=== PATIENT | male | born 1955 | race Caucasian/White ===

== ENCOUNTER 2018-12-04 12:27 | Emergency (ER) | payer MEDICAID ==
[~2018-12-04] VITALS: Ht 167.6 cm; Wt 104.3 kg
[~2018-12-04 12:27] MED LIST: ATOR40TA52 PO; CLOP75TA28 PO
[2018-12-04 14:29] VITALS: BP 113/79
== END 2018-12-04 14:56 | disposition home or self-care (01) ==
LOC: MERGE 12:27 → ER 12:27
DX: I83.891 Varicose veins of right lower extremity with other complications (principal); J44.9 Chronic obstructive pulmonary disease, unspecified; E11.9 Type 2 diabetes mellitus without complications; E78.5 Hyperlipidemia, unspecified; I10 Essential (primary) hypertension; Z86.73 Personal history of transient ischemic attack (TIA), and cerebral infarction without residual deficits
CPT/HCPCS: 82962; 93970

== ENCOUNTER 2019-11-07 12:46 | Emergency (ER) | payer MEDICAID ==
[~2019-11-07] VITALS: Ht 167.6 cm; Wt 93.0 kg
[2019-11-07 12:56] VITALS: BP 148/92
[2019-11-07] MEDS ORDERED: ACETAMINOPHEN 325 MG TAB PO ONE (14:00)
[2019-11-07] MEDS ORDERED: HYDROcodone-ACET 10/325MG TAB PO ONE (14:15)
== END 2019-11-07 14:31 | disposition home or self-care (01) ==
LOC: ER 12:46
DX: S43.402A Unspecified sprain of left shoulder joint, initial encounter (principal); I10 Essential (primary) hypertension; Z86.73 Personal history of transient ischemic attack (TIA), and cerebral infarction without residual deficits; X50.0XXA Overexertion from strenuous movement or load, initial encounter; Y93.89 Activity, other specified; Y92.89 Other specified places as the place of occurrence of the external cause; Y99.8 Other external cause status
CPT/HCPCS: 73030

== ENCOUNTER 2022-02-03 06:28 | Inpatient (IN) | payer MEDICARE, MEDICAID ==
[~2022-02-03] VITALS: Ht 167.6 cm; Wt 96.9 kg
[2022-02-03] MEDS ORDERED: ONDANSETRON HCL 4 MG/2 ML VIAL IV ONE (07:15)
[2022-02-03] MEDS ORDERED: NITROGLYCERIN 0.4 MG SL TAB SL ONE ×2 (07:15→08:00)
[2022-02-03] MEDS ORDERED: MORPHINE SULFATE 4 MG/ML SYR/VIAL IV ONE (07:15)
[2022-02-03 07:25] LABS: Basophils # (auto) 0 10 ^3/uL (0-0.2); Basophils % (auto) 0.5 % (0.0-2.0); Eosinophils # (auto) 0.2 10 ^3/uL (0-0.8); Eosinophils % (auto) 1.9 % (0.0-7.0); Hematocrit 41.2 % (41.0-53.0); Hemoglobin 13.7 g/dL (13.5-17.5); Lymphocytes # (auto) 1.8 10 ^3/uL (0.4-5.4); Lymphocytes % (auto) 20.7 % (10.0-50.0); Mean Corpuscular Hemoglobin 29.6 pg (28.0-32.0); Mean Corpuscular Hgb Conc. 33.2 g/dL (32.0-36.0); Mean Corpuscular Volume 89.2 fL (80.0-100.0); Monocytes # (auto) 0.6 10 ^3/uL (0-1.3); Monocytes % (auto) 6.5 % (0.0-12.0); Neutrophils # (auto) 6.1 10 ^3/uL (1.6-8.6); Neutrophils % (auto) 70.4 % (37.0-80.0); Red Blood Cells 4.62 10^6/uL (4.5-5.90); Red Cell Distribution Width 13.4 % (11.8-14.3); White Blood Cell 8.6 10^3/uL (4.4-10.8)
[2022-02-03 07:45] LABS: Albumin 3.4 g/dL (3.4-5.0); Calcium 8.9 mg/dL (8.5-10.1); Magnesium 2.2 mg/dL (1.6-2.6)
[2022-02-03 07:48] LABS: BUN/Creatinine Ratio 19.4; Bilirubin, Total 0.3 mg/dL (0.2-1.0); Total Protein 6.6 g/dL (6.4-8.2)
[2022-02-03 08:07] LABS: INR 0.94 (0.9-1.15)
[2022-02-03 11:19] LABS: Urine Bacteria NONE SEEN /hpf (None Seen); Urine Blood Negative /uL (Negative); Urine Mucus FEW (None Seen); Urine Specific Gravity 1.031 (1.001-1.035); Urine WBC 1 /hpf (0 - 3)
[2022-02-03] MEDS ORDERED: methylPREDNISolone SOD SUCC 125 MG/2 ML VL IV ONE (12:00)
[2022-02-03] MEDS ORDERED: DEXTROSE (50%) 50ML SYRG IV PRN (16:00)
[2022-02-03 16:26] LABS: Cholesterol 115 mg/dL (< 200)
[2022-02-03 16:28] LABS: HDL Cholesterol 49 mg/dL (40-59); LDL Cholesterol 60 mg/dL (< 100); Triglycerides 120 mg/dL (< 150)
[2022-02-03 16:38] LABS: Amphetamine Screen, Urine NEGATIVE (NEGATIVE); Barbiturate Scree,Urine NEGATIVE (NEGATIVE); Benzodiazephine Screen, Urine NEGATIVE (NEGATIVE); Cannabinoid Screen, Urine POSITIVE (NEGATIVE); Cocaine Screen, Urine NEGATIVE (NEGATIVE); Phencyclidine Screen, Urine NEGATIVE (NEGATIVE)
[2022-02-03] MEDS: ACCU-CHEK COMFORT CURVE STRIP VI SCH ×2 (17:20→22:16)
[2022-02-03 17:22] LABS: Opiate Scree,Urine POSITIVE (NEGATIVE)
[2022-02-03] MEDS: InsuLIN REG 1unit/0.01ml Soln (100units/ml) SC SCH ×2 (17:22→22:22)
[2022-02-03 22:35] VITALS: BP 155/89
[2022-02-03] MEDS: NITROGLYCERIN 0.4 MG SL TAB SL PRN ×2 (23:09→23:32)
[2022-02-03] MEDS: MORPHINE SULFATE INJ 2 MG/ml SYRG IV PRN (23:49)
[2022-02-04] MEDS: MORPHINE SULFATE INJ 2 MG/ml SYRG IV PRN (04:00)
[2022-02-04 05:00] VITALS: BP 141/82
[2022-02-04] MEDS: ACCU-CHEK COMFORT CURVE STRIP VI SCH ×4 (06:12→20:54)
[2022-02-04] MEDS: InsuLIN REG 1unit/0.01ml Soln (100units/ml) SC SCH ×4 (06:15→20:54)
[2022-02-04 06:58] LABS: Basophils # (auto) 0 10 ^3/uL (0-0.2); Basophils % (auto) 0.2 % (0.0-2.0); Eosinophils # (auto) 0 10 ^3/uL (0-0.8); Hematocrit 42.4 % (41.0-53.0); Hemoglobin 14.2 g/dL (13.5-17.5); Lymphocytes # (auto) 1.3 10 ^3/uL (0.4-5.4); Lymphocytes % (auto) 6.7 % (10.0-50.0); Mean Corpuscular Hemoglobin 29.9 pg (28.0-32.0); Mean Corpuscular Hgb Conc. 33.4 g/dL (32.0-36.0); Mean Corpuscular Volume 89.6 fL (80.0-100.0); Monocytes # (auto) 1.2 10 ^3/uL (0-1.3); Monocytes % (auto) 6.5 % (0.0-12.0); Neutrophils # (auto) 16.5 10 ^3/uL (1.6-8.6); Neutrophils % (auto) 86.6 % (37.0-80.0); Red Blood Cells 4.73 10^6/uL (4.5-5.90); Red Cell Distribution Width 13.4 % (11.8-14.3)
[2022-02-04 07:16] LABS: Potassium 4.2 mmol/L (3.5-5.1)
[2022-02-04 07:23] LABS: Albumin 3.6 g/dL (3.4-5.0); BUN/Creatinine Ratio 19.3; Bilirubin, Total 0.4 mg/dL (0.2-1.0); Calcium 9.3 mg/dL (8.5-10.1); Total Protein 7.1 g/dL (6.4-8.2)
[2022-02-04 08:30] VITALS: BP 161/86
[2022-02-04] MEDS ORDERED: REGADENOSON 0.4 MG/5 ML SYRG IV ONE (08:45)
[2022-02-04 08:55] VITALS: BP 161/86
[2022-02-04] MEDS ORDERED: ENOXAPARIN SOD 40 MG/0.4 ML SYRINGE SC SCH (10:00)
[2022-02-04] MEDS ORDERED: ASPirin 81 mg TAB PO ONE (10:15)
[2022-02-04] MEDS ORDERED: amLODIPine BESYLATE 5 MG TAB PO ONE (10:15)
[2022-02-04] MEDS ORDERED: KETOROLAC TROMETH 30 MG/ML 1ML VIAL IV ONE (10:30)
[2022-02-04 13:00] VITALS: BP 141/70
[2022-02-04 17:00] VITALS: BP 138/91
[2022-02-04 22:00] VITALS: BP 141/73
[2022-02-04] MEDS ORDERED: ATORVASTATIN 20 MG TAB PO SCH (22:00)
[2022-02-05 05:00] VITALS: BP 147/89
[2022-02-05] MEDS: ACCU-CHEK COMFORT CURVE STRIP VI SCH ×3 (06:26→17:00)
[2022-02-05] MEDS: InsuLIN REG 1unit/0.01ml Soln (100units/ml) SC SCH ×3 (06:32→17:00)
[2022-02-05 07:30] VITALS: BP 142/92
[2022-02-05 08:45] VITALS: BP 142/92
[2022-02-05] MEDS ORDERED: amLODIPine BESYLATE 5 MG TAB PO SCH (10:00)
[2022-02-05] MEDS ORDERED: ASPirin 81 mg TAB PO SCH (10:00)
[2022-02-05] MEDS ORDERED: HYDR25TA4 PO (11:03)
[2022-02-05] MEDS ORDERED: HYDR-4902 PO (11:03)
[2022-02-05] MEDS ORDERED: MAGN400T40 PO (11:03)
[2022-02-05] MEDS ORDERED: FINA5TAB4 PO (11:03)
[2022-02-05] MEDS ORDERED: METF-371 PO (11:03)
[2022-02-05] MEDS ORDERED: ATOR20TA50 PO (11:03)
[2022-02-05] MEDS ORDERED: METO25TA5 PO (11:03)
[2022-02-05] MEDS ORDERED: LISI20TA28 PO (11:03)
[2022-02-05] MEDS ORDERED: CHOL20007 OR (11:03)
[2022-02-05] MEDS ORDERED: ASPI-543 PO (11:03)
[2022-02-05 12:46] VITALS: BP 168/111
[2022-02-05 16:01] VITALS: BP 142/92
[2022-02-05 17:00] VITALS: BP 155/97
== END 2022-02-05 17:30 | disposition home health service (06) | DRG 303 ==
LOC: ER 06:28 → EDBD 06:28 → TELE 14:39 → TELE-CENTR 22:35
PROVIDERS: ADMIT Registered Nurse; ATTEND Internal Medicine
DX: I25.10 Atherosclerotic heart disease of native coronary artery without angina pectoris (principal); E11.9 Type 2 diabetes mellitus without complications; E66.01 Morbid (severe) obesity due to excess calories; I10 Essential (primary) hypertension; I45.10 Unspecified right bundle-branch block; J44.9 Chronic obstructive pulmonary disease, unspecified; R80.9 Proteinuria, unspecified; F12.90 Cannabis use, unspecified, uncomplicated; E78.5 Hyperlipidemia, unspecified; Z20.822 Contact with and (suspected) exposure to COVID-19; R82.4 Acetonuria; Z68.34 Body mass index [BMI] 34.0-34.9, adult; Z71.6 Tobacco abuse counseling; Z80.1 Family history of malignant neoplasm of trachea, bronchus and lung; Z80.3 Family history of malignant neoplasm of breast; Z80.42 Family history of malignant neoplasm of prostate; Z80.8 Family history of malignant neoplasm of other organs or systems; Z81.8 Family history of other mental and behavioral disorders; Z82.0 Family history of epilepsy and other diseases of the nervous system; Z82.3 Family history of stroke; Z82.49 Family history of ischemic heart disease and other diseases of the circulatory system; Z82.5 Family history of asthma and other chronic lower respiratory diseases; Z82.62 Family history of osteoporosis; Z83.3 Family history of diabetes mellitus; Z86.73 Personal history of transient ischemic attack (TIA), and cerebral infarction without residual deficits; Z90.49 Acquired absence of other specified parts of digestive tract; Z79.4 Long term (current) use of insulin
CPT/HCPCS: 36415; 71045; 78452; 80053; 80061; 80307; 81001; 82962; 83036; 83735; 83880; 84443; 84484; 85025; 85379; 85610; 85730; 93005; 93017; 93306; 96374; 96375; G0378; J1815; J1885; J2405

== ENCOUNTER 2022-02-25 12:57 | Emergency (ER) | payer MEDICARE, MEDICAID ==
[~2022-02-25] VITALS: Ht 167.6 cm; Wt 93.0 kg
[~2022-02-25 12:57] MED LIST changes: +ASPI-543 PO; +ATOR20TA50 PO; -ATOR40TA52 PO; +CHOL20007 OR; +FINA5TAB4 PO; +HYDR-4902 PO; +HYDR25TA4 PO; +LISI20TA28 PO; +MAGN400T40 PO; +METF-371 PO; +METO25TA5 PO
[2022-02-25] MEDS ORDERED: ASPirin 81 mg TAB PO ONE (13:00)
[2022-02-25 14:02] LABS: Basophils # (auto) 0.1 10 ^3/uL (0-0.2); Basophils % (auto) 0.6 % (0.0-2.0); Eosinophils # (auto) 0 10 ^3/uL (0-0.8); Eosinophils % (auto) 0.4 % (0.0-7.0); Hematocrit 43.9 % (41.0-53.0); Hemoglobin 14.9 g/dL (13.5-17.5); Lymphocytes # (auto) 1.3 10 ^3/uL (0.4-5.4); Lymphocytes % (auto) 13.7 % (10.0-50.0); Mean Corpuscular Hemoglobin 29.8 pg (28.0-32.0); Mean Corpuscular Hgb Conc. 33.9 g/dL (32.0-36.0); Mean Corpuscular Volume 87.7 fL (80.0-100.0); Monocytes # (auto) 0.7 10 ^3/uL (0-1.3); Monocytes % (auto) 7.1 % (0.0-12.0); Neutrophils # (auto) 7.2 10 ^3/uL (1.6-8.6); Neutrophils % (auto) 78.2 % (37.0-80.0); Nucleated Red Blood Cells % 0.1 %; Red Cell Distribution Width 13.4 % (11.8-14.3); White Blood Cell 9.2 10^3/uL (4.4-10.8)
[2022-02-25 14:54] LABS: Alanine Aminotransferase 25 U/L (16-61); Albumin 3.6 g/dL (3.4-5.0); Anion Gap 10 (5-15); Aspartate Aminotransferase 16 U/L (15-37); BUN/Creatinine Ratio 25.5; Blood Urea Nitrogen 26 mg/dL (7-18); Calcium 9.1 mg/dL (8.5-10.1); Carbon Dioxide 24 mmol/L (21-32); Chloride 100 mmol/L (98-107); GFR African American 94 mL/min; GFR Non-African American 78 mL/min; Glucose 123 mg/dL (74-106); Magnesium 1.9 mg/dL (1.6-2.6); Potassium 3.9 mmol/L (3.5-5.1); Sodium 134 mmol/L (136-145)
[2022-02-25 14:57] LABS: Alkaline Phosphatase 74 U/L (45-117); Bilirubin, Total 0.3 mg/dL (0.2-1.0); Total Protein 7.7 g/dL (6.4-8.2)
[2022-02-25 15:05] LABS: Amphetamine Screen, Urine NEGATIVE (NEGATIVE); Barbiturate Scree,Urine NEGATIVE (NEGATIVE); Benzodiazephine Screen, Urine NEGATIVE (NEGATIVE); Cannabinoid Screen, Urine POSITIVE (NEGATIVE); Cocaine Screen, Urine NEGATIVE (NEGATIVE); Opiate Scree,Urine NEGATIVE (NEGATIVE); Phencyclidine Screen, Urine NEGATIVE (NEGATIVE)
[2022-02-25 20:04] VITALS: BP 135/89
== END 2022-02-25 20:08 | disposition home or self-care (01) ==
LOC: ER 12:57 → EDBD 12:57 → ER 20:04
DX: R06.00 Dyspnea, unspecified (principal); R07.89 Other chest pain; I10 Essential (primary) hypertension; E11.9 Type 2 diabetes mellitus without complications; E78.5 Hyperlipidemia, unspecified; E03.9 Hypothyroidism, unspecified; F17.210 Nicotine dependence, cigarettes, uncomplicated; Z86.73 Personal history of transient ischemic attack (TIA), and cerebral infarction without residual deficits; Z90.49 Acquired absence of other specified parts of digestive tract; Z20.822 Contact with and (suspected) exposure to COVID-19
CPT/HCPCS: 36415; 71045; 80053; 80307; 83735; 84484; 85025; 93005

== ENCOUNTER 2022-04-01 09:00 | Emergency (ER) | payer MEDICARE, MEDICAID ==
[~2022-04-01] VITALS: Ht 167.6 cm; Wt 89.2 kg
[2022-04-01 09:20] VITALS: BP 118/91
[2022-04-01] MEDS ORDERED: ACETAMINOPHEN 325 MG TAB PO ONE (11:15)
[2022-04-01] MEDS ORDERED: ACET-1158 PO (11:19)
== END 2022-04-01 11:19 | disposition home or self-care (01) ==
LOC: ER 09:00
DX: G89.29 Other chronic pain (principal); M54.59 Other low back pain; E11.9 Type 2 diabetes mellitus without complications; I10 Essential (primary) hypertension; E78.5 Hyperlipidemia, unspecified; F17.210 Nicotine dependence, cigarettes, uncomplicated; F12.10 Cannabis abuse, uncomplicated; Z86.73 Personal history of transient ischemic attack (TIA), and cerebral infarction without residual deficits; Z76.0 Encounter for issue of repeat prescription; Z90.89 Acquired absence of other organs
CPT/HCPCS: 81002

== ENCOUNTER 2022-09-25 16:50 | Inpatient (IN) | payer MEDICARE, MEDICAID ==
[~2022-09-25] VITALS: Ht 165.1 cm; Wt 101.0 kg
[~2022-09-25 16:50] MED LIST changes: +ACET-1158 PO
[2022-09-25] MEDS ORDERED: LABETALOL HCL 5 MG/ML 4ML SYRINGE IV ONE ×2 (18:00→20:00)
[2022-09-25 18:43] LABS: Basophils # (auto) 0.1 10 ^3/uL (0-0.2); Basophils % (auto) 1.3 % (0.0-2.0); Eosinophils # (auto) 0.1 10 ^3/uL (0-0.8); Eosinophils % (auto) 0.7 % (0.0-7.0); Hematocrit 44.9 % (41.0-53.0); Hemoglobin 15.5 g/dL (13.5-17.5); Lymphocytes # (auto) 1.2 10 ^3/uL (0.4-5.4); Lymphocytes % (auto) 12.6 % (10.0-50.0); Mean Corpuscular Hemoglobin 29.7 pg (28.0-32.0); Mean Corpuscular Hgb Conc. 34.6 g/dL (32.0-36.0); Mean Corpuscular Volume 85.9 fL (80.0-100.0); Monocytes # (auto) 0.5 10 ^3/uL (0-1.3); Monocytes % (auto) 5.1 % (0.0-12.0); Neutrophils # (auto) 7.9 10 ^3/uL (1.6-8.6); Neutrophils % (auto) 80.3 % (37.0-80.0); Nucleated Red Blood Cells % 0.1 %; Red Blood Cells 5.23 10^6/uL (4.5-5.90); Red Cell Distribution Width 13.6 % (11.8-14.3); White Blood Cell 9.9 10^3/uL (4.4-10.8)
[2022-09-25 18:47] LABS: Urine Bacteria NONE SEEN /hpf (None Seen); Urine Blood Negative /uL (Negative); Urine Specific Gravity 1.016 (1.001-1.035); Urine WBC 1 /hpf (0 - 3)
[2022-09-25 19:02] LABS: Albumin 3.8 g/dL (3.4-5.0); BUN/Creatinine Ratio 16.7; Calcium 9.1 mg/dL (8.5-10.1); Magnesium 2.2 mg/dL (1.6-2.6); Potassium 3.9 mmol/L (3.5-5.1)
[2022-09-25 19:03] LABS: INR 0.97 (0.9-1.15); Partial Thromboplastin Time 26.6 sec (24.6-33.4)
[2022-09-25 19:05] LABS: Bilirubin, Total 0.3 mg/dL (0.2-1.0); Total Protein 7.7 g/dL (6.4-8.2)
[2022-09-25] MEDS ORDERED: DEXTROSE (50%) 50ML SYRG IV PRN (22:00)
[2022-09-25] MEDS ORDERED: DOCUSATE SOD 100 MG CAP PO PRN (22:00)
[2022-09-25] MEDS ORDERED: ACETAMINOPHEN 325 MG TAB PO PRN (22:00)
[2022-09-25] MEDS ORDERED: hydrALAZINE HCL 20 MG/ML VL IV PRN (22:00)
[2022-09-25] MEDS ORDERED: ONDANSETRON HCL 4 MG/2 ML VIAL IV PRN (22:00)
[2022-09-25] MEDS: SODIUM CHLOR 0.9% PF (SALINE LOCK) 10ML VIAL/SYR IV SCH (22:45)
[2022-09-25] MEDS: ACCU-CHEK COMFORT CURVE STRIP VI SCH (22:45)
[2022-09-25] MEDS: InsuLIN REG 1unit/0.01ml Soln (100units/ml) SC SCH (22:46)
[2022-09-25] MEDS: ATORVASTATIN 20 MG TAB PO SCH (22:47)
[2022-09-25] MEDS ORDERED: NITROGLYCERIN 0.4 MG SL TAB SL PRN (23:45)
[2022-09-25] MEDS ORDERED: MORPHINE SULFATE INJ 2 MG/ml SYRG IV PRN (23:45)
[2022-09-26] MEDS ORDERED: TEMAZEPAM 15 MG CAP PO ONE (00:45)
[2022-09-26 03:58] VITALS: BP 150/90
[2022-09-26 05:00] VITALS: BP 150/92
[2022-09-26] MEDS: SODIUM CHLOR 0.9% PF (SALINE LOCK) 10ML VIAL/SYR IV SCH ×3 (06:18→21:37)
[2022-09-26] MEDS: ACCU-CHEK COMFORT CURVE STRIP VI SCH ×4 (06:18→21:37)
[2022-09-26] MEDS: InsuLIN REG 1unit/0.01ml Soln (100units/ml) SC SCH ×4 (06:19→21:37)
[2022-09-26 06:20] LABS: Basophils # (auto) 0.1 10 ^3/uL (0-0.2); Eosinophils # (auto) 0.2 10 ^3/uL (0-0.8); Eosinophils % (auto) 2.3 % (0.0-7.0); Hematocrit 43.1 % (41.0-53.0); Hemoglobin 14.9 g/dL (13.5-17.5); Lymphocytes # (auto) 1.8 10 ^3/uL (0.4-5.4); Mean Corpuscular Hemoglobin 29.8 pg (28.0-32.0); Mean Corpuscular Hgb Conc. 34.5 g/dL (32.0-36.0); Mean Corpuscular Volume 86.5 fL (80.0-100.0); Monocytes # (auto) 0.5 10 ^3/uL (0-1.3); Monocytes % (auto) 7.7 % (0.0-12.0); Neutrophils # (auto) 4.3 10 ^3/uL (1.6-8.6); Nucleated Red Blood Cells % 0.1 %; Red Blood Cells 4.99 10^6/uL (4.5-5.90); Red Cell Distribution Width 13.9 % (11.8-14.3); White Blood Cell 6.8 10^3/uL (4.4-10.8)
[2022-09-26 06:49] LABS: Potassium 4.1 mmol/L (3.5-5.1)
[2022-09-26 06:59] LABS: Albumin 3.5 g/dL (3.4-5.0); BUN/Creatinine Ratio 18.7; Bilirubin, Total 0.6 mg/dL (0.2-1.0); Calcium 9.4 mg/dL (8.5-10.1); Total Protein 6.8 g/dL (6.4-8.2)
[2022-09-26 09:00] VITALS: BP 133/83
[2022-09-26] MEDS: FAMOTIDINE (10MG/ML) 2ML VL IV SCH (09:50)
[2022-09-26] MEDS: ASPirin 81 mg TAB PO SCH (09:50)
[2022-09-26] MEDS: CLOPIDOGREL BISULFATE 75 MG TAB PO SCH (09:50)
[2022-09-26] MEDS: LISINOPRIL 20 MG TAB PO SCH (09:50)
[2022-09-26 12:56] VITALS: BP 164/96
[2022-09-26] MEDS: amLODIPine BESYLATE 5 MG TAB PO SCH (16:21)
[2022-09-26 17:44] VITALS: BP 146/80
[2022-09-26] MEDS ORDERED: LORazepam 2MG/ML-1ML VIAL IV PRN (17:45)
[2022-09-26] MEDS: ATORVASTATIN 20 MG TAB PO SCH (21:33)
[2022-09-26 22:00] VITALS: BP 135/83
[2022-09-27 05:00] VITALS: BP 145/96
[2022-09-27] MEDS: ACCU-CHEK COMFORT CURVE STRIP VI SCH ×4 (05:58→22:35)
[2022-09-27] MEDS: SODIUM CHLOR 0.9% PF (SALINE LOCK) 10ML VIAL/SYR IV SCH ×3 (05:58→22:25)
[2022-09-27] MEDS: InsuLIN REG 1unit/0.01ml Soln (100units/ml) SC SCH ×4 (05:59→22:35)
[2022-09-27 08:29] VITALS: BP 133/95
[2022-09-27] MEDS: HYDROcodone-ACET 5/325MG TAB PO PRN (08:43)
[2022-09-27] MEDS: FAMOTIDINE (10MG/ML) 2ML VL IV SCH (10:07)
[2022-09-27] MEDS: amLODIPine BESYLATE 5 MG TAB PO SCH (10:08)
[2022-09-27] MEDS: ASPirin 81 mg TAB PO SCH (10:08)
[2022-09-27] MEDS: LISINOPRIL 20 MG TAB PO SCH (10:08)
[2022-09-27] MEDS: CLOPIDOGREL BISULFATE 75 MG TAB PO SCH (10:08)
[2022-09-27 13:00] VITALS: BP 162/108
[2022-09-27 17:00] VITALS: BP 116/73
[2022-09-27 22:00] VITALS: BP 161/98
[2022-09-27] MEDS: ATORVASTATIN 20 MG TAB PO SCH (22:25)
[2022-09-27 22:36] VITALS: BP 132/65
[2022-09-28] MEDS ORDERED: TEMAZEPAM 15 MG CAP PO ONE ×2 (00:15→21:30)
[2022-09-28 05:00] VITALS: BP 99/62
[2022-09-28 05:49] VITALS: BP 121/63
[2022-09-28] MEDS: SODIUM CHLOR 0.9% PF (SALINE LOCK) 10ML VIAL/SYR IV SCH ×3 (05:50→20:52)
[2022-09-28] MEDS: InsuLIN REG 1unit/0.01ml Soln (100units/ml) SC SCH ×4 (05:50→22:00)
[2022-09-28] MEDS: ACCU-CHEK COMFORT CURVE STRIP VI SCH ×4 (05:50→22:05)
[2022-09-28] MEDS: HYDROcodone-ACET 5/325MG TAB PO PRN (08:36)
[2022-09-28] MEDS: ASPirin 81 mg TAB PO SCH (08:57)
[2022-09-28] MEDS: LISINOPRIL 20 MG TAB PO SCH (08:57)
[2022-09-28] MEDS: CLOPIDOGREL BISULFATE 75 MG TAB PO SCH (08:57)
[2022-09-28] MEDS: amLODIPine BESYLATE 5 MG TAB PO SCH (08:58)
[2022-09-28] MEDS: FAMOTIDINE (10MG/ML) 2ML VL IV SCH (08:58)
[2022-09-28 09:00] VITALS: BP 135/89
[2022-09-28 12:13] LABS: Cholesterol 123 mg/dL (< 200); HDL Cholesterol 32 mg/dL (40-59); LDL Cholesterol 70 mg/dL (< 100); Triglycerides 228 mg/dL (< 150)
[2022-09-28 13:00] VITALS: BP 125/78
[2022-09-28 17:00] VITALS: BP 151/94
[2022-09-28] MEDS: ATORVASTATIN 20 MG TAB PO SCH (20:52)
[2022-09-28 22:22] VITALS: BP 136/88
[2022-09-29 04:57] VITALS: BP 104/72
[2022-09-29] MEDS: SODIUM CHLOR 0.9% PF (SALINE LOCK) 10ML VIAL/SYR IV SCH ×2 (05:37→14:00)
[2022-09-29] MEDS: InsuLIN REG 1unit/0.01ml Soln (100units/ml) SC SCH ×2 (06:04→11:30)
[2022-09-29] MEDS: ACCU-CHEK COMFORT CURVE STRIP VI SCH ×2 (06:04→11:30)
[2022-09-29 08:00] VITALS: BP 153/115
[2022-09-29] MEDS: HYDROcodone-ACET 5/325MG TAB PO PRN (08:13)
[2022-09-29] MEDS: CLOPIDOGREL BISULFATE 75 MG TAB PO SCH (09:53)
[2022-09-29] MEDS: ASPirin 81 mg TAB PO SCH (09:54)
[2022-09-29] MEDS: LISINOPRIL 20 MG TAB PO SCH (09:54)
[2022-09-29] MEDS: FAMOTIDINE (10MG/ML) 2ML VL IV SCH (09:54)
[2022-09-29] MEDS: amLODIPine BESYLATE 5 MG TAB PO SCH (09:56)
[2022-09-29] MEDS ORDERED: LISI20TA28 PO (11:07)
[2022-09-29] MEDS ORDERED: METF-372 PO (11:07)
[2022-09-29] MEDS ORDERED: CLOP75TA28 PO (11:07)
[2022-09-29] MEDS ORDERED: ASPI-463 PO (11:07)
[2022-09-29] MEDS ORDERED: HYDR25TA5 PO (11:07)
[2022-09-29] MEDS ORDERED: ATO40T PO (11:07)
[2022-09-29] MEDS ORDERED: METO25TA5 PO (11:07)
[2022-09-29 12:00] VITALS: BP 136/94
[2022-09-29 13:31] VITALS: BP 132/90
== END 2022-09-29 15:00 | disposition home or self-care (01) | DRG 64 ==
LOC: EDBD 16:50 → ER 16:50 → TELE 23:37 → TELE-EAST 09-26 02:44
PROVIDERS: ADMIT Nurse Practitioner Family; ATTEND Family Medicine
DX: I63.9 Cerebral infarction, unspecified (principal); I50.33 Acute on chronic diastolic (congestive) heart failure; I16.1 Hypertensive emergency; I11.0 Hypertensive heart disease with heart failure; E11.65 Type 2 diabetes mellitus with hyperglycemia; E66.01 Morbid (severe) obesity due to excess calories; E78.00 Pure hypercholesterolemia, unspecified; K59.00 Constipation, unspecified; R32 Unspecified urinary incontinence; F17.210 Nicotine dependence, cigarettes, uncomplicated; I45.10 Unspecified right bundle-branch block; Z91.199 Patient's noncompliance with other medical treatment and regimen due to unspecified reason; Z91.14 Patient's other noncompliance with medication regimen; Z86.73 Personal history of transient ischemic attack (TIA), and cerebral infarction without residual deficits; Z83.3 Family history of diabetes mellitus; Z82.62 Family history of osteoporosis; Z82.5 Family history of asthma and other chronic lower respiratory diseases; Z82.49 Family history of ischemic heart disease and other diseases of the circulatory system; Z82.3 Family history of stroke; Z82.0 Family history of epilepsy and other diseases of the nervous system; Z81.8 Family history of other mental and behavioral disorders; Z80.8 Family history of malignant neoplasm of other organs or systems; Z80.42 Family history of malignant neoplasm of prostate; Z80.3 Family history of malignant neoplasm of breast; Z80.1 Family history of malignant neoplasm of trachea, bronchus and lung; Z80.0 Family history of malignant neoplasm of digestive organs; Z79.899 Other long term (current) drug therapy; Z79.82 Long term (current) use of aspirin; Z68.37 Body mass index [BMI] 37.0-37.9, adult
CPT/HCPCS: 36415; 70450; 70551; 71045; 80053; 80061; 81001; 82962; 83735; 83880; 84484; 85025; 85610; 85730; 87426; 93005; 93306; 93886; 95819; 96374; 96376; 99291; G0378; J1815; J3490

== ENCOUNTER 2022-10-04 14:34 | Emergency (ER) | payer MEDICARE, MEDICAID ==
[~2022-10-04] VITALS: Ht 167.6 cm; Wt 97.7 kg
[~2022-10-04 14:34] MED LIST changes: +ASPI-463 PO; +ATO40T PO; +HYDR25TA5 PO; +METF-372 PO
[2022-10-04] MEDS ORDERED: HYDROcodone-ACET 10/325MG TAB PO ONE (15:00)
[2022-10-04 16:16] LABS: Basophils # (auto) 0.1 10 ^3/uL (0-0.2); Basophils % (auto) 0.9 % (0.0-2.0); Eosinophils # (auto) 0.1 10 ^3/uL (0-0.8); Eosinophils % (auto) 0.7 % (0.0-7.0); Hemoglobin 15.4 g/dL (13.5-17.5); Lymphocytes # (auto) 1.9 10 ^3/uL (0.4-5.4); Lymphocytes % (auto) 20.4 % (10.0-50.0); Mean Corpuscular Hemoglobin 29.7 pg (28.0-32.0); Mean Corpuscular Hgb Conc. 34.2 g/dL (32.0-36.0); Mean Corpuscular Volume 86.8 fL (80.0-100.0); Monocytes # (auto) 0.9 10 ^3/uL (0-1.3); Monocytes % (auto) 9.2 % (0.0-12.0); Neutrophils # (auto) 6.4 10 ^3/uL (1.6-8.6); Neutrophils % (auto) 68.8 % (37.0-80.0); Nucleated Red Blood Cells % 0.3 %; Red Blood Cells 5.18 10^6/uL (4.5-5.90); Red Cell Distribution Width 13.1 % (11.8-14.3); White Blood Cell 9.3 10^3/uL (4.4-10.8)
[2022-10-04 16:35] LABS: Albumin 3.9 g/dL (3.4-5.0); BUN/Creatinine Ratio 30.4 (10.0-20.0); Calcium 9.5 mg/dL (8.5-10.1); Magnesium 2.3 mg/dL (1.6-2.6); Potassium 4.1 mmol/L (3.5-5.1)
[2022-10-04 16:38] LABS: Bilirubin, Total 0.5 mg/dL (0.2-1.0); Total Protein 7.6 g/dL (6.4-8.2)
[2022-10-04] MEDS ORDERED: AZITHROMYCIN 250 MG TAB PO ONE (17:15)
[2022-10-04] MEDS ORDERED: ONDANSETRON ODT 4 MG TAB PO ONE (17:15)
[2022-10-04] MEDS ORDERED: AZIT250T8 PO ×2 (20:25)
[2022-10-04] MEDS ORDERED: ALBUAER3 IN ×2 (20:25)
[2022-10-04 20:42] VITALS: BP 142/68
[2022-10-05] MEDS ORDERED: AZIT250T8 PO (06:01)
[2022-10-05] MEDS ORDERED: ALBUAER3 IN (06:01)
[2022-10-05] MEDS ORDERED: LORA0.5T20 PO (08:36)
[2022-10-05] MEDS ORDERED: LEVO-28 PO (08:36)
== END 2022-10-04 20:41 | disposition home or self-care (01) ==
LOC: ER 14:34
DX: J18.9 Pneumonia, unspecified organism (principal); M79.661 Pain in right lower leg; E11.9 Type 2 diabetes mellitus without complications; E78.5 Hyperlipidemia, unspecified; I10 Essential (primary) hypertension; F17.210 Nicotine dependence, cigarettes, uncomplicated; F12.10 Cannabis abuse, uncomplicated; Z86.73 Personal history of transient ischemic attack (TIA), and cerebral infarction without residual deficits; Z88.6 Allergy status to analgesic agent
CPT/HCPCS: 36415; 71045; 80053; 83605; 83735; 83880; 84484; 85025; 85379; 87040; 93005; 99285; Q0162

== ENCOUNTER 2022-10-10 15:48 | Inpatient (IN) | payer MEDICARE, MEDICAID ==
[~2022-10-10] VITALS: Ht 2.5 cm; Wt 95.6 kg
[~2022-10-10 15:48] MED LIST changes: +ALBUAER3 IN; +AZIT250T8 PO; +LEVO-28 PO; +LORA0.5T20 PO
[2022-10-10] MEDS ORDERED: KETAMINE 50mg/ML 10ml Vial (500mg/10ml) IM ONE (20:30)
[2022-10-10 21:03] LABS: Basophils # (auto) 0.1 10 ^3/uL (0-0.2); Basophils % (auto) 0.4 % (0.0-2.0); Eosinophils # (auto) 0 10 ^3/uL (0-0.8); Eosinophils % (auto) 0.1 % (0.0-7.0); Hematocrit 48.7 % (41.0-53.0); Hemoglobin 16.7 g/dL (13.5-17.5); Lymphocytes # (auto) 0.7 10 ^3/uL (0.4-5.4); Mean Corpuscular Hemoglobin 29.3 pg (28.0-32.0); Mean Corpuscular Hgb Conc. 34.3 g/dL (32.0-36.0); Mean Corpuscular Volume 85.6 fL (80.0-100.0); Monocytes # (auto) 0.9 10 ^3/uL (0-1.3); Monocytes % (auto) 6.3 % (0.0-12.0); Neutrophils # (auto) 12.9 10 ^3/uL (1.6-8.6); Neutrophils % (auto) 88.2 % (37.0-80.0); Nucleated Red Blood Cells % 0.4 %; Red Blood Cells 5.69 10^6/uL (4.5-5.90); Red Cell Distribution Width 13.5 % (11.8-14.3); White Blood Cell 14.7 10^3/uL (4.4-10.8)
[2022-10-10 21:14] LABS: Albumin 4.3 g/dL (3.4-5.0); Anion Gap 13 (5-15); Blood Alcohol < 3.0 mg/dL (0-5); Blood Urea Nitrogen 16 mg/dL (7-18); Carbon Dioxide 20 mmol/L (21-32); Chloride 101 mmol/L (98-107); Glucose 144 mg/dL (74-106); Potassium 4.2 mmol/L (3.5-5.1); Sodium 134 mmol/L (136-145)
[2022-10-10 21:17] LABS: Alanine Aminotransferase 38 U/L (16-61); Alkaline Phosphatase 82 U/L (45-117); Aspartate Aminotransferase 47 U/L (15-37); GFR African American 76 mL/min; GFR Non-African American 63 mL/min; Total Protein 8.1 g/dL (6.4-8.2)
[2022-10-10 21:19] LABS: Lactic Acid w/Reflex 2.9 mmol/L (0.4-2.0)
[2022-10-11] VITALS (94 sets, daily range): BP systolic 68–187; BP diastolic 19–119
[2022-10-11] MEDS ORDERED: HYDROcodone-ACET 5/325MG TAB PO PRN
[2022-10-11] MEDS ORDERED: NITROGLYCERIN 0.4 MG SL TAB SL PRN
[2022-10-11] MEDS ORDERED: cefTRIAXone 1GM/50ML D5W 50 ML IV ONE
[2022-10-11] MEDS ORDERED: DEXTROSE (50%) 50ML SYRG IV PRN
[2022-10-11] MEDS ORDERED: ONDANSETRON HCL 4 MG/2 ML VIAL IV PRN
[2022-10-11] MEDS ORDERED: MORPHINE SULFATE INJ 2 MG/ml SYRG IV PRN
[2022-10-11] MEDS ORDERED: TEMAZEPAM 15 MG CAP PO PRN
[2022-10-11] MEDS ORDERED: ACETAMINOPHEN 325 MG TAB PO PRN
[2022-10-11] MEDS ORDERED: DOCUSATE SOD 100 MG CAP PO PRN
[2022-10-11] MEDS ORDERED: METOPROLOL TARTRATE 25 MG TAB PO ONE (00:45)
[2022-10-11 00:56] LABS: Urine Bacteria NONE SEEN /hpf (None Seen); Urine Blood 3+ /uL (Negative); Urine Hyaline Cast FEW /lpf (0 - 2); Urine Mucus FEW (None Seen); Urine Specific Gravity 1.011 (1.001-1.035); Urine WBC 2 /hpf (0 - 3)
[2022-10-11 01:06] LABS: Alcohol, Urine < 3.0 mg/dL (0-10); Amphetamine Screen, Urine NEGATIVE (NEGATIVE); Barbiturate Scree,Urine NEGATIVE (NEGATIVE); Benzodiazephine Screen, Urine NEGATIVE (NEGATIVE); Cannabinoid Screen, Urine POSITIVE (NEGATIVE); Cocaine Screen, Urine NEGATIVE (NEGATIVE); Opiate Scree,Urine NEGATIVE (NEGATIVE)
[2022-10-11 01:13] LABS: Phencyclidine Screen, Urine NEGATIVE (NEGATIVE)
[2022-10-11] MEDS ORDERED: KETAMINE HCL 10 ML ONE (01:46)
[2022-10-11] MEDS ORDERED: ROCURONIUM 10MG/ML 10ML VIAL IV ONE ×3 (01:56→02:30)
[2022-10-11] MEDS ORDERED: ETOMIDATE (2MG/ML) 20ML VIAL IV ONE ×2 (01:56→02:15)
[2022-10-11] MEDS ORDERED: fentaNYL Drip 2500mCg/250mlNS 250 ML IV ONE (02:06)
[2022-10-11] MEDS ORDERED: fentaNYL CITRATE 5 ML ONE (02:06)
[2022-10-11] MEDS: fentaNYL Drip 2500mCg/250mlNS 250 ML IV SCH ×2 (02:15→17:20)
[2022-10-11] MEDS ORDERED: fentaNYL CITRATE 100 MCG/2 ML VL IV ONE (02:15)
[2022-10-11] MEDS ORDERED: KETAMINE 50mg/ML 10ml Vial (500mg/10ml) IM ONE (02:15)
[2022-10-11] MEDS: PROPOFOL 100 ML IV SCH ×6 (02:46→19:50)
[2022-10-11] MEDS: SODIUM CHLORIDE 0.9% 1,000 ML IV SCH ×2 (02:53→17:21)
[2022-10-11] MEDS: hydrALAZINE HCL 20 MG/ML VL IV PRN (05:21)
[2022-10-11] MEDS ORDERED: LABETALOL HCL 5 MG/ML 4ML SYRINGE IV ONE (06:00)
[2022-10-11] MEDS: ACCU-CHEK COMFORT CURVE STRIP VI SCH ×4 (06:24→22:24)
[2022-10-11] MEDS: InsuLIN REG 1unit/0.01ml Soln (100units/ml) SC SCH ×4 (06:24→22:00)
[2022-10-11] MEDS ORDERED: NOREPINEPHRINE 8 MG/250ML KIT 250 ML IV ONE (08:01)
[2022-10-11] MEDS: NOREPINEPHRINE 8 MG/250ML KIT 250 ML IV SCH ×2 (08:05→23:10)
[2022-10-11 08:35] LABS: Basophils # (auto) 0 10 ^3/uL (0-0.2); Basophils % (auto) 0.2 % (0.0-2.0); Eosinophils # (auto) 0 10 ^3/uL (0-0.8); Hematocrit 43.6 % (41.0-53.0); Lymphocytes # (auto) 0.8 10 ^3/uL (0.4-5.4); Lymphocytes % (auto) 5.8 % (10.0-50.0); Mean Corpuscular Hemoglobin 29.5 pg (28.0-32.0); Mean Corpuscular Hgb Conc. 34.4 g/dL (32.0-36.0); Mean Corpuscular Volume 85.7 fL (80.0-100.0); Monocytes # (auto) 0.9 10 ^3/uL (0-1.3); Monocytes % (auto) 6.9 % (0.0-12.0); Neutrophils # (auto) 11.7 10 ^3/uL (1.6-8.6); Neutrophils % (auto) 87.1 % (37.0-80.0); Nucleated Red Blood Cells % 0.1 %; Red Blood Cells 5.09 10^6/uL (4.5-5.90); Red Cell Distribution Width 13.5 % (11.8-14.3); White Blood Cell 13.4 10^3/uL (4.4-10.8)
[2022-10-11 08:51] LABS: Potassium 4.1 mmol/L (3.5-5.1)
[2022-10-11 08:59] LABS: Albumin 3.5 g/dL (3.4-5.0); BUN/Creatinine Ratio 15.3 (10.0-20.0); Bilirubin, Total 0.6 mg/dL (0.2-1.0); Calcium 8.6 mg/dL (8.5-10.1); Total Protein 6.9 g/dL (6.4-8.2)
[2022-10-11] MEDS ORDERED: MIDAZOLAM DRIP 50 mg/50mL 50 ML IV ONE (09:59)
[2022-10-11] MEDS ORDERED: METOPROLOL TARTRATE 25 MG TAB PO SCH (10:00)
[2022-10-11] MEDS: amLODIPine BESYLATE 5 MG TAB PO SCH (10:00)
[2022-10-11] MEDS: METOPROLOL TARTRATE 25 MG TAB PO SCH ×2 (10:00→22:00)
[2022-10-11] MEDS ORDERED: MIDAZOLAM DRIP 50 mg/50mL 50 ML IV SCH ×4 (10:30→11:15)
[2022-10-11 10:52] LABS: INR 1.08 (0.9-1.15); Partial Thromboplastin Time 26.8 sec (24.6-33.4)
[2022-10-11] MEDS: FAMOTIDINE (10MG/ML) 2ML VL IV SCH (11:08)
[2022-10-11] MEDS: ASPirin 81 mg TAB PO SCH (11:09)
[2022-10-11] MEDS ORDERED: fentaNYL Drip 2500mCg/250mlNS 250 ML IV SCH ×2 (11:15→15:30)
[2022-10-11] MEDS ORDERED: LIDOCAINE 1% (LOCAL ANESTH.) PF 5ml SDV ID ONE (14:15)
[2022-10-11] MEDS ORDERED: AZITHROMYCIN 500MG/ 250ML 250 ML IV ONE (14:15)
[2022-10-11] MEDS ORDERED: PROPOFOL 100 ML IV SCH (15:30)
[2022-10-11] MEDS: MIDAZOLAM DRIP 50 mg/50mL 50 ML IV SCH (17:22)
[2022-10-11] MEDS: cefTRIAXone 1GM/50ML D5W 50 ML IV SCH (22:23)
[2022-10-11] MEDS: SODIUM CHLOR 0.9% PF (SALINE LOCK) 10ML VIAL/SYR IV SCH (22:24)
[2022-10-11] MEDS: ATORVASTATIN 20 MG TAB PO SCH (22:24)
[2022-10-12] VITALS (103 sets, daily range): BP systolic 97–166; BP diastolic 64–103
[2022-10-12] MEDS: PROPOFOL 100 ML IV SCH ×8 (00:32→23:18)
[2022-10-12 03:54] LABS: Basophils # (auto) 0.1 10 ^3/uL (0-0.2); Eosinophils # (auto) 0.2 10 ^3/uL (0-0.8); Hematocrit 38.4 % (41.0-53.0); Hemoglobin 13.2 g/dL (13.5-17.5); Lymphocytes # (auto) 1.1 10 ^3/uL (0.4-5.4); Lymphocytes % (auto) 10.9 % (10.0-50.0); Mean Corpuscular Hemoglobin 29.6 pg (28.0-32.0); Mean Corpuscular Hgb Conc. 34.5 g/dL (32.0-36.0); Monocytes # (auto) 0.8 10 ^3/uL (0-1.3); Monocytes % (auto) 7.5 % (0.0-12.0); Neutrophils % (auto) 78.6 % (37.0-80.0); Nucleated Red Blood Cells % 0.2 %; Red Blood Cells 4.47 10^6/uL (4.5-5.90); Red Cell Distribution Width 13.6 % (11.8-14.3); White Blood Cell 10.2 10^3/uL (4.4-10.8)
[2022-10-12 04:34] LABS: Calcium 6.9 mg/dL (8.5-10.1)
[2022-10-12 04:37] LABS: BUN/Creatinine Ratio 20.3 (10.0-20.0)
[2022-10-12] MEDS: fentaNYL Drip 2500mCg/250mlNS 250 ML IV SCH ×2 (05:41→16:48)
[2022-10-12] MEDS: InsuLIN REG 1unit/0.01ml Soln (100units/ml) SC SCH ×4 (06:26→21:19)
[2022-10-12] MEDS: ACCU-CHEK COMFORT CURVE STRIP VI SCH ×4 (06:42→21:20)
[2022-10-12] MEDS: NOREPINEPHRINE 8 MG/250ML KIT 250 ML IV SCH ×3 (06:43→23:17)
[2022-10-12] MEDS: POTASSIUM CHL 20MEQ/100ML 100 ML IV SCH ×2 (08:29→09:28)
[2022-10-12] MEDS: SODIUM CHLORIDE 0.9% 1,000 ML IV SCH ×3 (09:20→21:19)
[2022-10-12] MEDS: AZITHROMYCIN 500MG/ 250ML 250 ML IV SCH (09:35)
[2022-10-12] MEDS: amLODIPine BESYLATE 5 MG TAB PO SCH (09:36)
[2022-10-12] MEDS: ASPirin 81 mg TAB PO SCH (09:36)
[2022-10-12] MEDS: METOPROLOL TARTRATE 25 MG TAB PO SCH ×2 (09:36→21:19)
[2022-10-12] MEDS: FAMOTIDINE (10MG/ML) 2ML VL IV SCH (09:37)
[2022-10-12] MEDS: SODIUM CHLOR 0.9% PF (SALINE LOCK) 10ML VIAL/SYR IV SCH ×2 (09:37→21:19)
[2022-10-12] MEDS ORDERED: FUROSEMIDE 20 MG/2 ML VIAL IV ONE (12:00)
[2022-10-12] MEDS: MAGNESIUM SULFATE 1GM/100ML 100 ML IV SCH ×2 (12:26→13:18)
[2022-10-12] MEDS ORDERED: ENOXAPARIN SOD 40 MG/0.4 ML SYRINGE SC ONE (12:45)
[2022-10-12] MEDS: MIDAZOLAM DRIP 50 mg/50mL 50 ML IV SCH (15:30)
[2022-10-12] MEDS: ATORVASTATIN 20 MG TAB PO SCH (21:19)
[2022-10-12] MEDS: cefTRIAXone 1GM/50ML D5W 50 ML IV SCH (21:19)
[2022-10-13] VITALS (100 sets, daily range): BP systolic 76–172; BP diastolic 47–105
[2022-10-13] MEDS: PROPOFOL 100 ML IV SCH ×4 (01:33→09:58)
[2022-10-13 04:48] LABS: Basophils # (auto) 0 10 ^3/uL (0-0.2); Basophils % (auto) 0.6 % (0.0-2.0); Eosinophils # (auto) 0.3 10 ^3/uL (0-0.8); Eosinophils % (auto) 3.4 % (0.0-7.0); Hematocrit 40.7 % (41.0-53.0); Hemoglobin 14.2 g/dL (13.5-17.5); Lymphocytes # (auto) 0.7 10 ^3/uL (0.4-5.4); Lymphocytes % (auto) 9.1 % (10.0-50.0); Mean Corpuscular Hemoglobin 30.2 pg (28.0-32.0); Mean Corpuscular Volume 86.5 fL (80.0-100.0); Monocytes # (auto) 0.8 10 ^3/uL (0-1.3); Monocytes % (auto) 9.3 % (0.0-12.0); Neutrophils # (auto) 6.3 10 ^3/uL (1.6-8.6); Neutrophils % (auto) 77.6 % (37.0-80.0); Red Cell Distribution Width 13.3 % (11.8-14.3); White Blood Cell 8.1 10^3/uL (4.4-10.8)
[2022-10-13 04:51] LABS: Potassium 3.7 mmol/L (3.5-5.1)
[2022-10-13 04:52] LABS: BUN/Creatinine Ratio 11.7 (10.0-20.0)
[2022-10-13] MEDS: fentaNYL Drip 2500mCg/250mlNS 250 ML IV SCH (05:49)
[2022-10-13] MEDS: InsuLIN REG 1unit/0.01ml Soln (100units/ml) SC SCH ×4 (05:52→22:00)
[2022-10-13] MEDS: ACCU-CHEK COMFORT CURVE STRIP VI SCH ×4 (05:53→22:00)
[2022-10-13] MEDS: SODIUM CHLORIDE 0.9% 1,000 ML IV SCH ×2 (09:58→18:00)
[2022-10-13] MEDS: amLODIPine BESYLATE 5 MG TAB PO SCH (10:00)
[2022-10-13] MEDS: METOPROLOL TARTRATE 25 MG TAB PO SCH ×3 (10:00→22:00)
[2022-10-13] MEDS: AZITHROMYCIN 500MG/ 250ML 250 ML IV SCH (10:06)
[2022-10-13] MEDS: ENOXAPARIN SOD 40 MG/0.4 ML SYRINGE SC SCH (10:06)
[2022-10-13] MEDS: ASPirin 81 mg TAB PO SCH (10:07)
[2022-10-13] MEDS: FAMOTIDINE (10MG/ML) 2ML VL IV SCH (10:07)
[2022-10-13] MEDS: FUROSEMIDE 20 MG/2 ML VIAL IV SCH (10:09)
[2022-10-13] MEDS: SODIUM CHLOR 0.9% PF (SALINE LOCK) 10ML VIAL/SYR IV SCH ×2 (10:09→22:00)
[2022-10-13] MEDS: NOREPINEPHRINE 8 MG/250ML KIT 250 ML IV SCH (10:34)
[2022-10-13] MEDS: MIDAZOLAM DRIP 50 mg/50mL 50 ML IV SCH (15:30)
[2022-10-13] MEDS: ATORVASTATIN 20 MG TAB PO SCH (22:00)
[2022-10-13] MEDS: cefTRIAXone 1GM/50ML D5W 50 ML IV SCH (22:00)
[2022-10-14] VITALS (83 sets, daily range): BP systolic 90–213; BP diastolic 8–116
[2022-10-14] MEDS: SODIUM CHLORIDE 0.9% 1,000 ML IV SCH ×3 (04:04→23:36)
[2022-10-14] MEDS: InsuLIN REG 1unit/0.01ml Soln (100units/ml) SC SCH ×4 (06:30→22:00)
[2022-10-14] MEDS: ACCU-CHEK COMFORT CURVE STRIP VI SCH ×4 (06:30→22:26)
[2022-10-14] MEDS: AZITHROMYCIN 500MG/ 250ML 250 ML IV SCH (09:51)
[2022-10-14] MEDS: ENOXAPARIN SOD 40 MG/0.4 ML SYRINGE SC SCH (09:52)
[2022-10-14] MEDS: ASPirin 81 mg TAB PO SCH (09:52)
[2022-10-14] MEDS: FUROSEMIDE 20 MG/2 ML VIAL IV SCH (09:52)
[2022-10-14] MEDS: FAMOTIDINE (10MG/ML) 2ML VL IV SCH (09:52)
[2022-10-14] MEDS: METOPROLOL TARTRATE 25 MG TAB PO SCH ×2 (09:53→22:15)
[2022-10-14] MEDS: amLODIPine BESYLATE 5 MG TAB PO SCH (09:53)
[2022-10-14] MEDS: SODIUM CHLOR 0.9% PF (SALINE LOCK) 10ML VIAL/SYR IV SCH ×2 (09:54→22:14)
[2022-10-14] MEDS ORDERED: LABETALOL HCL 5 MG/ML 4ML SYRINGE IV PRN ×2 (15:45)
[2022-10-14] MEDS ORDERED: ALPRAZolam 0.5 MG TAB PO PRN (15:45)
[2022-10-14] MEDS: ATORVASTATIN 20 MG TAB PO SCH (22:14)
[2022-10-14] MEDS: cefTRIAXone 1GM/50ML D5W 50 ML IV SCH (22:14)
[2022-10-15] VITALS (25 sets, daily range): BP systolic 108–190; BP diastolic 66–97
[2022-10-15] MEDS: hydrALAZINE HCL 20 MG/ML VL IV PRN (05:34)
[2022-10-15] MEDS: ACCU-CHEK COMFORT CURVE STRIP VI SCH ×4 (06:48→22:27)
[2022-10-15] MEDS: InsuLIN REG 1unit/0.01ml Soln (100units/ml) SC SCH ×4 (06:48→22:00)
[2022-10-15] MEDS ORDERED: LABETALOL HCL 5 MG/ML 4ML SYRINGE IV PRN (08:15)
[2022-10-15] MEDS: SODIUM CHLORIDE 0.9% 1,000 ML IV SCH ×2 (09:34→20:05)
[2022-10-15] MEDS: ASPirin 81 mg TAB PO SCH (09:36)
[2022-10-15] MEDS: AZITHROMYCIN 500MG/ 250ML 250 ML IV SCH (09:36)
[2022-10-15] MEDS: SODIUM CHLOR 0.9% PF (SALINE LOCK) 10ML VIAL/SYR IV SCH ×2 (09:36→22:26)
[2022-10-15] MEDS: FUROSEMIDE 20 MG/2 ML VIAL IV SCH (09:36)
[2022-10-15] MEDS: METOPROLOL TARTRATE 25 MG TAB PO SCH ×2 (09:36→22:27)
[2022-10-15] MEDS: FAMOTIDINE (10MG/ML) 2ML VL IV SCH (09:36)
[2022-10-15] MEDS: ENOXAPARIN SOD 40 MG/0.4 ML SYRINGE SC SCH (09:37)
[2022-10-15] MEDS: amLODIPine BESYLATE 5 MG TAB PO SCH (09:37)
[2022-10-15] MEDS ORDERED: LISINOPRIL 20 MG TAB PO ONE (10:15)
[2022-10-15] MEDS: cefTRIAXone 1GM/50ML D5W 50 ML IV SCH (22:26)
[2022-10-15] MEDS: ATORVASTATIN 20 MG TAB PO SCH (22:26)
[2022-10-16 05:00] VITALS: BP 155/90
[2022-10-16] MEDS: hydrALAZINE HCL 20 MG/ML VL IV PRN (05:29)
[2022-10-16 06:19] LABS: Basophils # (auto) 0 10 ^3/uL (0-0.2); Basophils % (auto) 0.2 % (0.0-2.0); Eosinophils # (auto) 0.1 10 ^3/uL (0-0.8); Eosinophils % (auto) 1.1 % (0.0-7.0); Hematocrit 38.2 % (41.0-53.0); Hemoglobin 13.7 g/dL (13.5-17.5); Lymphocytes # (auto) 0.8 10 ^3/uL (0.4-5.4); Lymphocytes % (auto) 9.9 % (10.0-50.0); Mean Corpuscular Hemoglobin 30.2 pg (28.0-32.0); Mean Corpuscular Hgb Conc. 35.8 g/dL (32.0-36.0); Mean Corpuscular Volume 84.3 fL (80.0-100.0); Monocytes # (auto) 0.7 10 ^3/uL (0-1.3); Monocytes % (auto) 9.3 % (0.0-12.0); Neutrophils # (auto) 6.1 10 ^3/uL (1.6-8.6); Neutrophils % (auto) 79.5 % (37.0-80.0); Nucleated Red Blood Cells % 0.1 %; Red Blood Cells 4.53 10^6/uL (4.5-5.90); Red Cell Distribution Width 13.2 % (11.8-14.3); White Blood Cell 7.7 10^3/uL (4.4-10.8)
[2022-10-16] MEDS: InsuLIN REG 1unit/0.01ml Soln (100units/ml) SC SCH ×4 (06:27→22:00)
[2022-10-16] MEDS: ACCU-CHEK COMFORT CURVE STRIP VI SCH ×4 (06:27→22:16)
[2022-10-16] MEDS: SODIUM CHLORIDE 0.9% 1,000 ML IV SCH ×2 (06:28→11:31)
[2022-10-16 06:35] VITALS: BP 118/55
[2022-10-16 06:43] LABS: Albumin 2.3 g/dL (3.4-5.0); BUN/Creatinine Ratio 26.8 (10.0-20.0); Bilirubin, Total 0.4 mg/dL (0.2-1.0); Calcium 8.3 mg/dL (8.5-10.1); Total Protein 6.1 g/dL (6.4-8.2)
[2022-10-16 06:45] LABS: Potassium 2.8 mmol/L (3.5-5.1)
[2022-10-16] MEDS ORDERED: POTASSIUM CHL 20 Meq TABLET PO ONE (07:00)
[2022-10-16 09:00] VITALS: BP 124/72
[2022-10-16] MEDS: LISINOPRIL 20 MG TAB PO SCH (11:24)
[2022-10-16] MEDS: ENOXAPARIN SOD 40 MG/0.4 ML SYRINGE SC SCH (11:25)
[2022-10-16] MEDS: AZITHROMYCIN 500MG/ 250ML 250 ML IV SCH (11:26)
[2022-10-16] MEDS: METOPROLOL TARTRATE 25 MG TAB PO SCH ×2 (11:26→22:16)
[2022-10-16] MEDS: amLODIPine BESYLATE 5 MG TAB PO SCH (11:27)
[2022-10-16] MEDS: POTASSIUM CHL 20 Meq TABLET PO SCH ×2 (11:28→12:30)
[2022-10-16] MEDS: ASPirin 81 mg TAB PO SCH (11:28)
[2022-10-16] MEDS: FUROSEMIDE 20 MG/2 ML VIAL IV SCH (11:29)
[2022-10-16] MEDS: SODIUM CHLOR 0.9% PF (SALINE LOCK) 10ML VIAL/SYR IV SCH ×2 (11:29→22:16)
[2022-10-16] MEDS: FAMOTIDINE (10MG/ML) 2ML VL IV SCH (11:29)
[2022-10-16 13:00] VITALS: BP 104/68
[2022-10-16 17:00] VITALS: BP 129/70
[2022-10-16 22:00] VITALS: BP 132/87
[2022-10-16] MEDS: cefTRIAXone 1GM/50ML D5W 50 ML IV SCH (22:15)
[2022-10-16] MEDS: ATORVASTATIN 20 MG TAB PO SCH (22:16)
[2022-10-17] MEDS: SODIUM CHLORIDE 0.9% 1,000 ML IV SCH ×2 (02:00→10:35)
[2022-10-17 05:00] VITALS: BP 138/80
[2022-10-17] MEDS: InsuLIN REG 1unit/0.01ml Soln (100units/ml) SC SCH ×4 (06:11→22:00)
[2022-10-17] MEDS: ACCU-CHEK COMFORT CURVE STRIP VI SCH ×4 (06:11→22:56)
[2022-10-17 09:00] VITALS: BP 140/83
[2022-10-17] MEDS: LISINOPRIL 20 MG TAB PO SCH (10:23)
[2022-10-17] MEDS: METOPROLOL TARTRATE 25 MG TAB PO SCH ×2 (10:24→22:56)
[2022-10-17] MEDS: amLODIPine BESYLATE 5 MG TAB PO SCH (10:25)
[2022-10-17] MEDS: ASPirin 81 mg TAB PO SCH (10:27)
[2022-10-17] MEDS: ENOXAPARIN SOD 40 MG/0.4 ML SYRINGE SC SCH (10:29)
[2022-10-17] MEDS: FAMOTIDINE (10MG/ML) 2ML VL IV SCH (10:29)
[2022-10-17] MEDS: SODIUM CHLOR 0.9% PF (SALINE LOCK) 10ML VIAL/SYR IV SCH ×2 (10:30→22:55)
[2022-10-17] MEDS: FUROSEMIDE 20 MG/2 ML VIAL IV SCH (10:30)
[2022-10-17] MEDS: AZITHROMYCIN 500MG/ 250ML 250 ML IV SCH (10:34)
[2022-10-17 13:00] VITALS: BP 139/78
[2022-10-17] MEDS ORDERED: DEXTROSE (50%) 50ML SYRG IV PRN (13:15)
[2022-10-17] MEDS ORDERED: FINASTERIDE 5 MG TAB PO ONE (13:15)
[2022-10-17] MEDS ORDERED: ALPRAZolam 0.5 MG TAB PO PRN (13:15)
[2022-10-17 13:52] LABS: Calcium 8.7 mg/dL (8.5-10.1); Potassium 3.4 mmol/L (3.5-5.1)
[2022-10-17 16:59] VITALS: BP 137/90
[2022-10-17 22:00] VITALS: BP 131/92
[2022-10-17] MEDS: ATORVASTATIN 20 MG TAB PO SCH (22:55)
[2022-10-17] MEDS: cefTRIAXone 1GM/50ML D5W 50 ML IV SCH (22:55)
[2022-10-18 06:00] VITALS: BP 135/86
[2022-10-18 06:03] LABS: Basophils # (auto) 0 10 ^3/uL (0-0.2); Basophils % (auto) 0.5 % (0.0-2.0); Eosinophils # (auto) 0.3 10 ^3/uL (0-0.8); Eosinophils % (auto) 3.8 % (0.0-7.0); Hematocrit 38.3 % (41.0-53.0); Hemoglobin 13.7 g/dL (13.5-17.5); Lymphocytes # (auto) 1.3 10 ^3/uL (0.4-5.4); Lymphocytes % (auto) 15.8 % (10.0-50.0); Mean Corpuscular Hemoglobin 29.8 pg (28.0-32.0); Mean Corpuscular Hgb Conc. 35.8 g/dL (32.0-36.0); Mean Corpuscular Volume 83.3 fL (80.0-100.0); Monocytes # (auto) 0.7 10 ^3/uL (0-1.3); Monocytes % (auto) 8.9 % (0.0-12.0); Neutrophils # (auto) 5.7 10 ^3/uL (1.6-8.6); Nucleated Red Blood Cells % 0.1 %; Red Blood Cells 4.59 10^6/uL (4.5-5.90); Red Cell Distribution Width 13.1 % (11.8-14.3)
[2022-10-18] MEDS: ACCU-CHEK COMFORT CURVE STRIP VI SCH ×4 (06:19→21:20)
[2022-10-18] MEDS: InsuLIN REG 1unit/0.01ml Soln (100units/ml) SC SCH ×4 (06:19→21:19)
[2022-10-18 06:24] LABS: Calcium 8.6 mg/dL (8.5-10.1); Potassium 3.2 mmol/L (3.5-5.1)
[2022-10-18 06:26] LABS: BUN/Creatinine Ratio 33.8 (10.0-20.0)
[2022-10-18 09:00] VITALS: BP 133/76
[2022-10-18] MEDS: LISINOPRIL 20 MG TAB PO SCH (09:58)
[2022-10-18] MEDS: ENOXAPARIN SOD 40 MG/0.4 ML SYRINGE SC SCH (09:58)
[2022-10-18] MEDS: FAMOTIDINE (10MG/ML) 2ML VL IV SCH (09:58)
[2022-10-18] MEDS: METOPROLOL TARTRATE 25 MG TAB PO SCH ×2 (09:59→21:17)
[2022-10-18] MEDS: ASPirin 81 mg TAB PO SCH (09:59)
[2022-10-18] MEDS: amLODIPine BESYLATE 5 MG TAB PO SCH (09:59)
[2022-10-18] MEDS: SODIUM CHLOR 0.9% PF (SALINE LOCK) 10ML VIAL/SYR IV SCH ×2 (09:59→21:19)
[2022-10-18] MEDS: FINASTERIDE 5 MG TAB PO SCH (09:59)
[2022-10-18] MEDS: AZITHROMYCIN 500MG/ 250ML 250 ML IV SCH (09:59)
[2022-10-18 12:53] VITALS: BP 135/53
[2022-10-18] MEDS ORDERED: POTASSIUM EFFERVESENT TAB 25 MEQ GT ONE (16:15)
[2022-10-18 17:00] VITALS: BP 150/91
[2022-10-18] MEDS: cefTRIAXone 1GM/50ML D5W 50 ML IV SCH (21:17)
[2022-10-18] MEDS: OLANZapine 5 MG TAB PO SCH (21:17)
[2022-10-18] MEDS: ATORVASTATIN 20 MG TAB PO SCH (21:17)
[2022-10-18 22:00] VITALS: BP 144/90
[2022-10-19 04:53] VITALS: BP 130/70
[2022-10-19] MEDS: ACCU-CHEK COMFORT CURVE STRIP VI SCH ×3 (06:07→18:02)
[2022-10-19] MEDS: InsuLIN REG 1unit/0.01ml Soln (100units/ml) SC SCH ×3 (06:07→17:00)
[2022-10-19 06:42] LABS: BUN/Creatinine Ratio 29.7 (10.0-20.0); Calcium 9.8 mg/dL (8.5-10.1); Potassium 3.2 mmol/L (3.5-5.1)
[2022-10-19] MEDS: LISINOPRIL 20 MG TAB PO SCH (08:31)
[2022-10-19] MEDS: OLANZapine 5 MG TAB PO SCH (08:32)
[2022-10-19] MEDS: FINASTERIDE 5 MG TAB PO SCH (08:32)
[2022-10-19] MEDS: amLODIPine BESYLATE 5 MG TAB PO SCH (08:32)
[2022-10-19] MEDS: AZITHROMYCIN 500MG/ 250ML 250 ML IV SCH (08:33)
[2022-10-19] MEDS: ASPirin 81 mg TAB PO SCH (08:33)
[2022-10-19] MEDS: METOPROLOL TARTRATE 25 MG TAB PO SCH (08:33)
[2022-10-19] MEDS: ENOXAPARIN SOD 40 MG/0.4 ML SYRINGE SC SCH (08:33)
[2022-10-19] MEDS: FAMOTIDINE (10MG/ML) 2ML VL IV SCH (08:34)
[2022-10-19 08:49] VITALS: BP 152/110
[2022-10-19] MEDS: SODIUM CHLOR 0.9% PF (SALINE LOCK) 10ML VIAL/SYR IV SCH (10:00)
[2022-10-19] MEDS ORDERED: TEMA15CA5 PO ×2 (10:50)
[2022-10-19] MEDS ORDERED: OLAN1TAB7 PO (10:58)
[2022-10-19 12:18] VITALS: BP 137/91
[2022-10-19 16:53] VITALS: BP 108/81
== END 2022-10-19 17:45 | disposition home or self-care (01) | DRG 208 ==
LOC: EDBD 15:48 → ER 15:48 → TELE 23:57 → ICU WEST 10-11 04:42 → TELE-WESTW 10-15 22:45
PROVIDERS: ADMIT Nurse Practitioner Family; ATTEND Internal Medicine
PROC: 02HV33Z Insertion of Infusion Device into Superior Vena Cava, Percutaneous Approach (ICD-10-PCS; 2022-10-10)
PROC: B548ZZA Ultrasonography of Superior Vena Cava, Guidance (ICD-10-PCS; 2022-10-10)
PROC: 5A1945Z Respiratory Ventilation, 24-96 Consecutive Hours (ICD-10-PCS; principal; 2022-10-11)
PROC: 0BH17EZ Insertion of Endotracheal Airway into Trachea, Via Natural or Artificial Opening (ICD-10-PCS; 2022-10-11)
DX: J96.01 Acute respiratory failure with hypoxia (principal); G93.41 Metabolic encephalopathy; I50.33 Acute on chronic diastolic (congestive) heart failure; J69.0 Pneumonitis due to inhalation of food and vomit; E87.20 Acidosis, unspecified; E03.9 Hypothyroidism, unspecified; E11.9 Type 2 diabetes mellitus without complications; E66.01 Morbid (severe) obesity due to excess calories; E78.5 Hyperlipidemia, unspecified; F41.9 Anxiety disorder, unspecified; I11.0 Hypertensive heart disease with heart failure; R32 Unspecified urinary incontinence; I16.0 Hypertensive urgency; F17.210 Nicotine dependence, cigarettes, uncomplicated; Z20.822 Contact with and (suspected) exposure to COVID-19; Z79.84 Long term (current) use of oral hypoglycemic drugs; Z79.899 Other long term (current) drug therapy; Z80.3 Family history of malignant neoplasm of breast; Z80.1 Family history of malignant neoplasm of trachea, bronchus and lung; Z79.02 Long term (current) use of antithrombotics/antiplatelets; Z81.8 Family history of other mental and behavioral disorders; Z82.3 Family history of stroke; Z82.49 Family history of ischemic heart disease and other diseases of the circulatory system; Z82.0 Family history of epilepsy and other diseases of the nervous system; Z83.3 Family history of diabetes mellitus; Z82.62 Family history of osteoporosis; Z86.73 Personal history of transient ischemic attack (TIA), and cerebral infarction without residual deficits; Z91.199 Patient's noncompliance with other medical treatment and regimen due to unspecified reason; Z80.42 Family history of malignant neoplasm of prostate; Z80.8 Family history of malignant neoplasm of other organs or systems; Z82.5 Family history of asthma and other chronic lower respiratory diseases; Z80.0 Family history of malignant neoplasm of digestive organs
CPT/HCPCS: 36415; 36569; 36600; 70450; 71045; 73070; 80048; 80053; 80307; 80320; 81001; 82140; 82805; 82962; 83036; 83605; 83735; 83880; 84443; 84484; 85025; 85610; 85730; 87070; 87081; 87205; 87426; 93005; 93306; 94002; 94003; 97110; 97116; 97163; 97530; G0378; J0696; J1815; J2250; J2704; J3480; J3490; J7060

== ENCOUNTER 2023-03-09 16:52 | Emergency (ER) | payer MEDICARE, MEDICAID ==
[~2023-03-09] VITALS: Ht 165.1 cm; Wt 94.4 kg
[~2023-03-09 16:52] MED LIST changes: -ACET-1158 PO; +ACET500T58 PO; +AZIT-81 PO; -AZIT250T8 PO; -LEVO-28 PO; +LEVO500T91 PO; -LISI20TA28 PO; +LISI20TA56 PO; +LORA-1121 PO; -LORA0.5T20 PO; +OLAN1TAB7 PO
[2023-03-09 18:31] VITALS: BP 148/72; PULSE 62; RESP 18; TEMP 98.1; O2SAT 97
[2023-03-09] MEDS ORDERED: cefTRIAXone SOD 1,000 MG VL IM ONE (20:00)
[2023-03-09] MEDS ORDERED: DexAMETHasone SOD PHOS 10MG/1ML VIAL INJ IM ONE (20:00)
[2023-03-09] MEDS ORDERED: CETITAB29 PO (20:01)
[2023-03-09] MEDS ORDERED: PRED20TA2 PO (20:01)
[2023-03-09] MEDS ORDERED: CEPH500C PO (20:01)
== END 2023-03-09 20:52 | disposition home or self-care (01) ==
LOC: ER 16:52
DX: L03.113 Cellulitis of right upper limb (principal); L25.9 Unspecified contact dermatitis, unspecified cause; I10 Essential (primary) hypertension; E11.9 Type 2 diabetes mellitus without complications; E78.5 Hyperlipidemia, unspecified; F17.210 Nicotine dependence, cigarettes, uncomplicated; F15.90 Other stimulant use, unspecified, uncomplicated; Z86.73 Personal history of transient ischemic attack (TIA), and cerebral infarction without residual deficits; Z90.49 Acquired absence of other specified parts of digestive tract; Z79.1 Long term (current) use of non-steroidal anti-inflammatories (NSAID); Z79.82 Long term (current) use of aspirin; Z79.84 Long term (current) use of oral hypoglycemic drugs; Z79.899 Other long term (current) drug therapy
CPT/HCPCS: 96372; 99284; J0696; J1100

== ENCOUNTER 2023-03-24 13:01 | Emergency (ER) | payer OTHER, MEDICAID ==
[~2023-03-24] VITALS: Ht 165.1 cm; Wt 91.5 kg
[~2023-03-24 13:01] MED LIST changes: +CEPH500C PO; +CETITAB29 PO; +PRED20TA2 PO
[2023-03-24 13:39] VITALS: BP 95/55; PULSE 87; RESP 18; TEMP 98.1; O2SAT 97
[2023-03-24] MEDS ORDERED: TRIA0.023 TOP (15:30)
[2023-03-24] MEDS ORDERED: DexAMETHasone SOD PHOS 10MG/1ML VIAL INJ IM ONE (15:30)
[2023-03-24] MEDS ORDERED: PRED20TA2 PO (15:30)
== END 2023-03-24 16:35 | disposition home or self-care (01) ==
LOC: ER 13:01
DX: L29.8 Other pruritus (principal); E11.9 Type 2 diabetes mellitus without complications; E78.5 Hyperlipidemia, unspecified; I10 Essential (primary) hypertension; F17.210 Nicotine dependence, cigarettes, uncomplicated; F12.10 Cannabis abuse, uncomplicated; Z86.73 Personal history of transient ischemic attack (TIA), and cerebral infarction without residual deficits
CPT/HCPCS: 96372; 99283; J1100